=== PATIENT | female | born 1970 | race Two or more races ===

== ENCOUNTER → 2016-10-30 | Outpatient (REF) | payer OTHER ==
[2016-10-30 12:19] LABS: ALBUMIN 4.2 GM/DL (3.2-5.2); ALBUMIN/GLOBULIN RATIO 1.17 (1.00-1.93); ALKALINE PHOSPHATASE 72 U/L (45-117); ALT/SGPT 31 U/L (12-78); ANION GAP 9 MEQ/L (8-16); AST/SGOT 16 U/L (15-37); BILIRUBIN,TOTAL 0.9 MG/DL (0.2-1.0); BLOOD UREA NITROGEN 10 MG/DL (7-18); CALCIUM LEVEL 9.2 MG/DL (8.5-10.1); CARBON DIOXIDE LEVEL 27 MEQ/L (21-32); CHLORIDE LEVEL 102 MEQ/L (98-107); CHOLESTEROL LEVEL 242 MG/DL (<200); CREATININE FOR GFR 0.82 MG/DL (0.55-1.02); FREE T4 1.01 NG/DL (0.76-1.46); GLOMERULAR FILTRATION RATE > 60.0 (>58); GLUCOSE, FASTING 85 MG/DL (70-105); POTASSIUM SERUM 3.9 MEQ/L (3.5-5.1); SODIUM LEVEL 138 MEQ/L (136-145); TOTAL PROTEIN 7.8 GM/DL (6.4-8.2); TRIGLYCERIDES LEVEL 183 MG/DL (<150)
[2016-10-30 13:51] LABS: CONTROL LINE HPYORI INT CTR LINE PRESENT
== END ==
LOC: M SFHCCLAY 07:58
PROVIDERS: ATTEND Family Medicine
DX: E78.2 Mixed hyperlipidemia (principal); R03.0 Elevated blood-pressure reading, without diagnosis of hypertension; K21.9 Gastro-esophageal reflux disease without esophagitis

== ENCOUNTER 2017-01-25 09:27 | Outpatient (CLI) | payer OTHER ==
[~2017-01-25] VITALS: Ht 158.1 cm; Wt 63.5 kg
[~2017-01-25 09:27] MED LIST: PANT40TA2 PO; RANI150T PO
[2017-01-25] MEDS ORDERED: NS 1,000 ML IV ONE (10:00)
[2017-01-25] MEDS ORDERED: CLAR10CA3 PO (10:45)
[2017-01-25] MEDS ORDERED: PROPOFOL 200 MG/20 ML VIAL As Ordered ONE (11:37)
[2017-01-25] MEDS ORDERED: LIDOCAINE 2% INJ 100 MG/5 ML SDV (FOR ANES.) As Ordered ONE (11:38)
--- NOTE | 2017-01-25 11:46 | ROOR ---
Patient Name: Luisa Zaidi Procedure Date: 01/25/2017 11:27 AM Date of : 1970 Age: 46 Room: [facility] Gender: Female Note Status: Finalized Procedure: Upper GI endoscopy Indications: Epigastric abdominal pain, Suspected gastro-esophageal reflux disease Providers: Reagan Devries MD Referring MD: TRACY THAPA DO Requesting Provider: Medicines: Monitored Anesthesia Care Complications: No immediate complications. Procedure: Pre-Anesthesia Assessment: - Prior to the procedure, a History and Physical was performed, and patient medications and allergies were reviewed. The patient is competent. The risks and benefits of the procedure and the sedation options and risks were discussed with the patient. All questions were answered and informed consent was obtained. Patient identification and proposed procedure were verified by the physician, the nurse and the ibm websphere commerce developer in the procedure room. Mental Status Examination: alert and oriented. Airway Examination: normal oropharyngeal airway and neck mobility. Respiratory Examination: clear to auscultation. CV Examination: normal. Prophylactic Antibiotics: The patient does not require prophylactic antibiotics. Prior Anticoagulants: The patient has taken no previous anticoagulant or antiplatelet agents. ASA Grade Assessment: II - A patient with mild systemic disease. After reviewing the risks and benefits, the patient was deemed in satisfactory condition to undergo the procedure. The anesthesia plan was to use monitored anesthesia care (MAC). Immediately prior to administration of medications, the patient was re-assessed for adequacy to receive sedatives. The heart rate, respiratory rate, oxygen saturations, blood pressure, adequacy of pulmonary ventilation, and response to care were monitored throughout the procedure. The physical status of the patient was re-assessed after the procedure. The Endoscope was introduced through the mouth, and advanced to the second part of duodenum. The upper GI endoscopy was accomplished without difficulty. The patient tolerated the procedure well. Findings: A small hiatal hernia was present. The Z-line was regular and was found 36 cm from the incisors. Biopsies were taken with a cold forceps for histology. Verification of patient identification for the specimen was done by the physician and nurse using the patient's name, date and medical record number. Estimated blood loss was minimal. Multiple localized, non-bleeding erosions were found in the gastric antrum. There were no stigmata of recent bleeding. Biopsies were taken with a cold forceps for histology. No gross lesions were noted in the duodenal bulb and in the second portion of the duodenum. Biopsies for histology were taken with a cold forceps for evaluation of celiac disease. Impression: - Small hiatal hernia. - Z-line regular, 36 cm from the incisors. Biopsied. - Non-bleeding erosive gastropathy. Biopsied. - No gross lesions in the duodenal bulb and in the second portion of the duodenum. Biopsied. Recommendation: - Patient has a contact number available for emergencies. The signs and symptoms of potential delayed complications were discussed with the patient. Return to normal activities tomorrow. Written discharge instructions were provided to the patient. - Resume previous diet. - Continue present medications. - Use a proton pump inhibitor PO daily for 8 weeks. - Avoid ibuprofen, naproxen, or other non-steroidal anti-inflammatory drugs. - Await pathology results. - Return to GI clinic as previously scheduled on 02/13/2017 at 9:00 AM. - Return to primary care physician. Reagan Devries MD Reagan Devries MD 01/25/2017 11:45:51 AM This report has been signed electronically. Number of Addenda: 0 Note Initiated On: 01/25/2017 11:27 AM Estimated Blood Loss: Estimated blood loss was minimal.
[2017-01-25 12:05] VITALS: BP 115/77
== END 2017-01-25 12:10 | disposition home or self-care (01) ==
LOC: M OPP 09:27
PROVIDERS: ATTEND Internal Medicine Gastroenterology
DX: R10.13 Epigastric pain (principal); K31.89 Other diseases of stomach and duodenum; K44.9 Diaphragmatic hernia without obstruction or gangrene; R12 Heartburn; K21.9 Gastro-esophageal reflux disease without esophagitis; M19.90 Unspecified osteoarthritis, unspecified site; M54.9 Dorsalgia, unspecified; F41.9 Anxiety disorder, unspecified; R51 Headache; Z87.891 Personal history of nicotine dependence; Z79.899 Other long term (current) drug therapy; Z80.3 Family history of malignant neoplasm of breast

== ENCOUNTER → 2017-02-15 | Outpatient (CLI) | payer OTHER ==
[~2017-02-15] MED LIST changes: +CLAR10CA3 PO
--- NOTE | 2017-02-15 08:46 | REP ---
Complete abdominal ultrasound: There is no cholelithiasis, gallbladder wall thickening or pericholecystic fluid. There is no intrahepatic or extrahepatic biliary duct dilatation, the common duct measures 2.8 mm in diameter. The hepatic parenchyma is homogeneous. The visualized portion of the pancreatic head is unremarkable. The body and tail are obscured by bowel gas. The spleen is homogeneous and measures 11.5 cm craniocaudad length, upper normal size. The right and left kidneys are normal size. There are no renal calculi, masses or cyst. There is no hydronephrosis. There is no abdominal aortic aneurysm. There is no ascites. Impression: Essentially negative complete abdominal ultrasound. Signed by Petey Bill MD 02/15/2017 08:37 A
== END ==
LOC: M RAD 06:07
PROVIDERS: ATTEND Internal Medicine Gastroenterology
DX: R10.9 Unspecified abdominal pain (principal)

== ENCOUNTER → 2017-08-13 | Outpatient (CLI) | payer OTHER | LOC: M CLY 08:02 | DX: J10.1 Influenza due to other identified influenza virus with other respiratory manifestations (principal) ==

== ENCOUNTER → 2018-05-12 | Outpatient (REF) | payer OTHER ==
[~2018-05-12] MED LIST changes: -PANT40TA2 PO; +PANT40TA3 PO
[2018-05-16 00:40] LABS: HPV HYBRID CAPTURE II Negative (Negative)
== END ==
LOC: M SFHCCLAY 11:23
PROVIDERS: ATTEND Nurse Practitioner Family
DX: Z12.31 Encounter for screening mammogram for malignant neoplasm of breast (principal)

== ENCOUNTER → 2018-06-13 | Outpatient (CLI) | payer OTHER ==
--- NOTE | 2018-06-19 15:06 | REPMRS ---
Patient History The patient states she had a clinical breast exam in 2018. No known family history of cancer. Digital Mammo Screening Bilat: June 13, 2018 - Exam #: [id number] Bilateral CC and MLO view(s) were taken. Technologist: Vero Johnson, Technologist Prior study comparison: May 08, 2010, bilateral digital woman screen mammo, performed at [facility]. FINDINGS: The breast tissue is heterogeneously dense. This may lower the sensitivity of mammography. There is a moderate amount of heterogeneously dense fibroglandular tissue which is fairly symmetric. There is no interval development of dominant mass, architectural distortion, or clustered microcalcification typical of malignancy. There has been no change in the appearance of the mammogram from the prior studies. Assessment: BI-RADS/ACR category 1 mammogram. Negative Mammogram. Recommendation Routine screening mammogram of both breasts in 1 year (for women over age 40). This patient's Lifetime Breast Cancer RIsk is estimated at 9.4 %. This mammogram was interpreted with the aid of an FDA-approved computer-aided dectection system. Electronically Signed By: Jeromy Arauz MD 06/19/18 [id number]
== END ==
LOC: M RAD 07:33
PROVIDERS: ATTEND Nurse Practitioner Family
DX: Z12.31 Encounter for screening mammogram for malignant neoplasm of breast (principal)

== ENCOUNTER → 2018-06-15 | Outpatient (CLI) | payer OTHER ==
--- NOTE | 2018-06-18 09:35 | SLEEPCENT ---
DATE OF PROCEDURE: 06/15/2018 ORDERED BY: Sunil Gutierres Nocturnal polysomnography was performed for evaluation of sleep physiology in this patient with a history of snoring, irregular breathing in sleep and nonrestorative sleep. 8 hours and 2 minutes of data were reviewed. They were 372 minutes of sleep identified. Sleep latency was prolonged at 51.5 minutes. Rapid eye movement (REM) latency likewise prolonged at 189 minutes. Sleep architecture was fair with 2 REM cycles noted. Overall sleep efficiency was 77.9%. Electrocardiogram showed sinus rhythm with an average heart rate of 70 beats per minute. Rate ranged 60-80 beats per minute. Electroencephalogram (EEG) showed no focal events, normal waveforms for awake and sleep. There were only 9 respiratory events of 10 seconds in duration or greater for an apnea-hypopnea index within normal limits of 1.5. Snoring was however noted over the course of the entire study and arousals from respiratory events occurred 4 times per hour. There were occasional mild oxygen desaturations below 80%. Some limb activity was noted, but limb movement arousal index was only 2.4. IMPRESSION: Normal nocturnal polysomnography with snoring.
== END ==
LOC: M SLEEP 20:00
PROVIDERS: ATTEND Physician Assistant
DX: R40.0 Somnolence (principal)

== ENCOUNTER → 2019-03-02 | Outpatient (REF) | payer OTHER ==
[2019-03-02 10:57] LABS: CHOLESTEROL RISK RATIO 3.779 (<5)
== END ==
LOC: M SFHCCLAY 07:27
PROVIDERS: ATTEND Family Medicine
DX: Z00.01 Encounter for general adult medical examination with abnormal findings (principal); Z13.220 Encounter for screening for lipoid disorders; Z82.49 Family history of ischemic heart disease and other diseases of the circulatory system

== ENCOUNTER → 2019-03-07 | Outpatient (CLI) | payer OTHER ==
--- NOTE | 2019-03-07 09:58 | REP ---
REASON FOR EXAM: Chronic maxillary sinusitis. COMPARISON: 03/29/2011 The right maxillary sinus mucosal thickening seen on the prior examination has significantly improved. Persistent mucous retention cysts are suspected. The remaining paranasal sinuses are again seen to be clear and unchanged. The ostiomeatal complex is again seen to be patent bilaterally. The hiatus semilunaris is within normal limits bilaterally. The uncinate process is intact and unchanged bilaterally. There is a right middle turbinate eder bullosa unchanged. The minimal nasal septal deviation seen on the prior exam is unchanged. It is again seen to the left with a tiny leftward nasal septal spine. The cribriform plate and mitchel camila are again seen to be intact. There is no orbital wall abnormality. IMPRESSION: Improved findings on the right as described above. No acute disease or otherwise significant change from the prior exam. Electronically Signed by Mateusz Price DO 03/07/2019 10:04 A
== END ==
LOC: M RAD 09:21
PROVIDERS: ATTEND Family Medicine
DX: J32.0 Chronic maxillary sinusitis (principal)

== ENCOUNTER → 2019-03-24 | Outpatient (CLI) | payer OTHER ==
[2019-03-24 17:38] LABS: FREE T4 0.84 NG/DL (0.76-1.46)
[2019-03-24 17:39] LABS: HCG, SERUM QUALITATIVE NEGATIVE (NEGATIVE)
[2019-03-24 17:42] LABS: FOLLICLE STIMULATING HORMONE 8.6 mIU/mL; LUTEINIZING HORMONE 9.6 mIU/mL
== END ==
LOC: M SMT 14:42
PROVIDERS: ATTEND Advanced Practice Midwife
DX: N92.4 Excessive bleeding in the premenopausal period (principal)

== ENCOUNTER → 2019-03-26 | Outpatient (CLI) | payer OTHER ==
--- NOTE | 2019-03-27 08:44 | REP ---
Clinical: Abnormal uterine bleeding . Technique: Transabdominal pelvic ultrasound followed by transvaginal examination for better evaluation of the endometrium and adnexa with color Doppler evaluation of the ovaries. Findings: Bladder is unremarkable and measures 10.2 x 9.0 x 6.9 cm . Heterogeneous anteverted uterus measures 8.3 x 4.9 x 6.3 cm and includes 2.4 cm left/fundal complex submucosal fibroid and 1.6 cm left mid submucosal fibroid. The endometrial complex measures 6.7 mm thickness with 8 mm hypoechoic focus possibly representing third submucosal fibroid or small endometrial polyp. Bilateral ovaries are normal in appearance and vascularity without evidence for torsion. Right ovary measures 3.6 x 2.5 x 3.5 cm and includes 2.3 cm physiologic cyst / follicle ; R I = 0.47 . Left ovary measures 1.9 x 1.1 x 1.6 cm ; R I = 0.40 . No pelvic fluid or adnexal mass lesion . Impression: 1. Submucosal fibroids as noted above along with possible endometrial polyp. 2. Right ovarian cyst / follicle Electronically Signed by Sunil Rushing MD 03/27/2019 08:36 A
== END ==
LOC: M RAD 17:23
PROVIDERS: ATTEND Advanced Practice Midwife
DX: N92.4 Excessive bleeding in the premenopausal period (principal); D25.0 Submucous leiomyoma of uterus; N83.201 Unspecified ovarian cyst, right side

== ENCOUNTER → 2019-05-12 | Outpatient (REF) | payer OTHER | LOC: M SFHCWAGY 10:58 | PROVIDERS: ATTEND Obstetrics & Gynecology | DX: N93.9 Abnormal uterine and vaginal bleeding, unspecified (principal) ==

== ENCOUNTER → 2019-06-15 | Outpatient (CLI) | payer OTHER ==
[2019-06-15 12:51] LABS: FOLATE 11.1 NG/ML (>5.4); RHEUMATOID FACTOR QUANT < 10.0 IU/ML (<15.0); TOTAL 25(OH) VITAMIN D 27.6 NG/ML (30.0-100.0); TOTAL PROTEIN 7.5 GM/DL (6.4-8.2); VITAMIN B12 LEVEL 488 PG/ML (247-911)
[2019-06-15 13:24] LABS: HEMOGLOBIN A1c 5.1 %
[2019-06-16 13:16] LABS: ALBUMIN 4.71 GM/DL (3.29-5.55); ALBUMIN % 62.8 % (55.8-66.1); ALPHA-1-GLOBULIN % 3.2 % (2.9-4.9); ALPHA-1-GLOBULINS 0.24 GM/DL (0.17-0.41); ALPHA-2-GLOBULINS 0.68 GM/DL (0.42-0.99); ALPHA-2-GLOBULINS % 9.1 % (7.1-11.8); BETA-1-GLOBULINS 0.46 GM/DL (0.28-0.60); BETA-1-GLOBULINS % 6.1 % (4.7-7.2); BETA-2-GLOBULINS 0.31 GM/DL (0.19-0.55); BETA-2-GLOBULINS % 4.1 % (3.2-6.5); GAMMA GLOBULIN % 14.7 % (11.1-18.8)
== END ==
LOC: M CLY 09:15
PROVIDERS: ATTEND Psychiatry & Neurology Neurology
DX: R51 Headache (principal)

== ENCOUNTER 2019-07-03 07:56 | Day surgery (SDC) | payer OTHER ==
[~2019-07-03] VITALS: Ht 162.6 cm; Wt 65.8 kg
[~2019-07-03 07:56] MED LIST changes: +AZEL1SPR3; +GABA-1171 PO; +LIDOCAINE 1% MDV 20ML VIAL SQ PRN; +LR 1,000 ML IV ONE; +[UNRECOGNIZED DRUG - CODE] OU
[2019-07-03 08:28] LABS: HEMATOCRIT 43.6 % (36.0-47.0); HEMOGLOBIN 13.7 g/dl (12.0-15.5); MEAN CORPUSCULAR HEMOGLOBIN 29.6 pg (27.0-33.0); MEAN CORPUSCULAR HGB CONC 31.4 g/dl (32.0-36.5); MEAN CORPUSCULAR VOLUME 94.2 fl (80.0-96.0); PLATELET COUNT, AUTOMATED 239 10^3/uL (150-450); RED BLOOD COUNT 4.63 10^6/uL (4.00-5.40); WHITE BLOOD COUNT 3.2 10^3/uL (4.0-10.0)
[2019-07-03] MEDS ORDERED: KETOROLAC 60 MG/2 ML VIAL (J1885) As Ordered ONE (11:24)
[2019-07-03] MEDS ORDERED: dexameTHASONE 4 MG/ML 1ML VIAL (J1100) As Ordered ONE (11:24)
[2019-07-03] MEDS ORDERED: ONDANSETRON 4MG/2ML VIAL (J2405) As Ordered ONE (11:24)
[2019-07-03] MEDS ORDERED: propofoL 200 MG/20 ML VIAL As Ordered ONE (11:24)
[2019-07-03] MEDS ORDERED: fentaNYL 100 MCG/2 ML INJECTION (J3010) As Ordered ONE (11:24)
[2019-07-03] MEDS ORDERED: MIDAZOLAM INJ 2 MG/2 ML VIAL (J2250) As Ordered ONE (11:24)
[2019-07-03] MEDS ORDERED: LIDOCAINE 2% INJ 100 MG/5 ML SDV (FOR ANES.) As Ordered ONE (11:24)
[2019-07-03] MEDS ORDERED: METOCLOPRAMIDE INJ 10MG/2ML VIAL (J2765) IV PRN (12:45)
[2019-07-03] MEDS ORDERED: PERCOCET 5MG/325MG TAB PO PRN (12:45)
[2019-07-03] MEDS ORDERED: ONDANSETRON 4MG/2ML VIAL (J2405) IV PRN (12:45)
[2019-07-03] MEDS ORDERED: fentaNYL 100 MCG/2 ML INJECTION (J3010) IV PRN (12:45)
[2019-07-03] MEDS ORDERED: LR 1,000 ML IV SCH ×2 (12:45→13:46)
[2019-07-03] MEDS ORDERED: PERCOCET PO (13:04)
[2019-07-03 14:05] VITALS: BP 125/83
== END 2019-07-03 14:15 | disposition home or self-care (01) ==
LOC: M SDC 07:56
PROVIDERS: ATTEND Obstetrics & Gynecology
DX: N93.8 Other specified abnormal uterine and vaginal bleeding (principal); D25.9 Leiomyoma of uterus, unspecified; I11.9 Hypertensive heart disease without heart failure; R42 Dizziness and giddiness; K21.9 Gastro-esophageal reflux disease without esophagitis; M50.20 Other cervical disc displacement, unspecified cervical region; F41.9 Anxiety disorder, unspecified; F32.9 Major depressive disorder, single episode, unspecified; Z79.899 Other long term (current) drug therapy; Z87.891 Personal history of nicotine dependence
CPT/HCPCS: 36415; 58563; 85027; 86850; 86900; 86901; 88305; J1100; J1885; J2250; J2405; J3010

== ENCOUNTER → 2020-01-15 | Outpatient (REF) | payer OTHER ==
[~2020-01-15] MED LIST changes: -LIDOCAINE 1% MDV 20ML VIAL SQ PRN; -LR 1,000 ML IV ONE; +PANT40TA29 PO; -PANT40TA3 PO; +PERCOCET PO
== END ==
LOC: M LABDRAWC 14:55
PROVIDERS: ATTEND Family Medicine
DX: R14.0 Abdominal distension (gaseous) (principal); R53.83 Other fatigue

== ENCOUNTER → 2020-01-25 | Outpatient (REF) | payer OTHER ==
[2020-01-26 13:53] LABS: BASO % 0.5 % (0.0-1.0); HEMATOCRIT 41.3 % (36.0-47.0); HEMOGLOBIN 13.4 g/dl (12.0-15.5); LYMPH # 0.8 10^3/uL (1.5-5.0); LYMPH % 20.2 % (24.0-44.0); MEAN CORPUSCULAR HEMOGLOBIN 30.9 pg (27.0-33.0); MEAN CORPUSCULAR HGB CONC 32.4 g/dl (32.0-36.5); MEAN CORPUSCULAR VOLUME 95.4 fl (80.0-96.0); MONO # 0.5 10^3/uL (0.0-0.8); MONO % 12.8 % (0.0-5.0); NEUTROPHILS # 2.5 10^3/uL (1.5-8.5); NEUTROPHILS % 65.2 % (36.0-66.0); PLATELET COUNT, AUTOMATED 272 10^3/uL (150-450); RED BLOOD COUNT 4.33 10^6/uL (4.00-5.40); WHITE BLOOD COUNT 3.8 10^3/uL (4.0-10.0)
[2020-01-26 13:56] LABS: FREE T4 0.93 NG/DL (0.76-1.46); THYROID STIMULATING HORMONE 2.22 uIU/ML (0.358-3.740)
[2020-01-27 18:07] LABS: Lyme Disease IgG/IgM Antibodie <0.91 ISR (0.00-0.90); Lyme Disease IgM Ab Quantitati <0.80 index (0.00-0.79)
== END ==
LOC: M LABDRAWC 14:55
PROVIDERS: ATTEND Family Medicine
DX: R14.0 Abdominal distension (gaseous) (principal); R53.83 Other fatigue; K59.00 Constipation, unspecified; M25.50 Pain in unspecified joint

== ENCOUNTER → 2020-05-03 | Outpatient (CLI) | payer SELFPAY | LOC: M LABSMTC 09:12 | PROVIDERS: ATTEND Pediatrics | DX: Z11.59 Encounter for screening for other viral diseases (principal) ==

== ENCOUNTER → 2021-03-10 | Outpatient (CLI) | payer OTHER | LOC: M LABSMTC 11:29 | PROVIDERS: ATTEND Anesthesiology | DX: Z01.812 Encounter for preprocedural laboratory examination (principal); Z20.822 Contact with and (suspected) exposure to COVID-19 ==

== ENCOUNTER 2021-03-14 09:21 | Day surgery (SDC) | payer OTHER ==
[~2021-03-14] VITALS: Ht 157.5 cm; Wt 67.1 kg
[~2021-03-14 09:21] MED LIST changes: +NS 1,000 ML IV ONE
--- OUTSIDE RECORDS SUMMARY | 2021-03-14 09:24 | CCD | Continuity of Care Document ---
Author Author Luisa FARIAS A [facility] Organization Unknown Address [address] [place] [address], [address] [place] [address] Phone [phone] Care Team Providers Care Airborne [employer]ions Systems Name Role Phone Bianka Sellers D.O.M [phone] Problems Active Problems Provider Date Chronic rhinitis Donovan Al MD Onset: 05/03/2014 Sensorineural hearing loss, bilateral Donovan Al MD On set: 05/03/2014 Subjective tinnitus Donovan Al MD Onset: 05/03/2014 Headache Donovan Al MD Onset: 05/03/2014 Chronic maxillary sinusitis Donovan Al MD Onset: 05/03 Peptic reflux disease Reagan Devries M.D. Onset: 01/02 Heartburn Reagan Devries M.D. Onset: 017 Epigastric pain Reagan Devries M.D. Onset: 017 Gastroesophageal reflux disease Reagan Devries M.D. On set: 02/13/2017 Disturbance of consciousness NASIMA Salas Onset: 05/27 Difficulty breathing NASIMA Salas Onset: 06/09/2018 Sleep apnea NASIMA Salas Onset: 06/09/2018 Social History Type Date Description Comments Sex Unknown ETOH Use 1 A Day Tobacco Use Start: 05/27/87 End: 05/27/97 Patient is a forme r smoker hx 1 pack per day for 10 years Recreational Drug Use Denies Drug Use Smoking Status Reviewed: 06/09/18 Patient is a former smoker hx 1 pack per day for 10 years Exercise Type/Frequency Exercises regularly Allergies, Adverse Reactions, Alerts Description No Known Drug Allergies Medications Active Medications SIG Qnty Indications Ordering Provide r Date Suprep Bowel Prep Kit 17.5-3.13-1.6GM/177ML Solution take per doctor's bowel prep instructions. 354ml Z12.1 1 Noah Villagran MD 01/31/[address] take 4 tabs by mouth prior to procedure per instructions. 4tabs Z12.11 Noah Villagrna MD 01/31/2021 Ibuprofen 600mg Tablets as needed 90tabs Unknown Gabapentin 100mg Capsules Tegan ly Unknown Vitamin D 2000Unit Tablets Da everardo Unknown Zyrtec-D Allergy & Congestion 5-120mg Tablets ER 12HR prn Unknown Immunizations Description No Information Available Vital Signs Date Vital Result Comment 01/31/2021 2:58pm BP Systolic 128 mmHg BP Diastolic 90 mmHg Height 62.75 inches 5'2.75" Weight 149.00 lb BMI (Body Mass Index) 26.6 kg/m2 [place] Body Weight 110 lb Weight 67.586 kg BSA (Body Surface Area) 1.70 m2 04/14/2019 10:14am Height 62.75 inches 5'2.75" Weight 147.00 lb BMI (Body Mass Index) 26.2 kg/m2 [place] Body Weight 110 lb Weight 66.679 kg BSA (Body Surface Area) 1.69 m2 Results Description No Information Available Procedures Description No Information Available Medical Devices Description No Information Available Encounters Description No Information Available Assessments Date Code Description Provider 01/31/2021 Z12.11 Encounter for screening for soumya gnant neoplasm of colon URI [place] Plan of Treatment 01/31/2021 - URI [place]nis* Z12.11 Encounter for screening for malignant neoplasm of colon * * New Medication:* Suprep Bowel Prep Kit 17.5-3.13-1.6 GM/177ML * Dulcolax 5 mg * New Orders:* Colonoscopy, Ordered: 01/31/21 * Comments:* Will arrange for colonoscopy. Reviewed risks and benefits of the procedure, as well as other options, with the patient. Bowel prep procedure was discussed with patient, as well as risks and side effects associated with the bowel prep. Patient verbalized understanding of all of the above and is in agreement to proceed. Patient will seek medical attention for any acute changes. Will monitor. * Follow up:* As scheduled, sooner if needed. Functional Status Functional Condition Comment Date Status Independent with all ADL's Activ e Independent with all IADL's Acti ve Mental Status Mental Condition Comment Date Status None Active Can understand information Activ e Referrals Description No Information Available
--- OUTSIDE RECORDS SUMMARY | 2021-03-14 09:24 | CCD | Continuity of Care Document ---
Author Author Luisa MUNROE P.A.-C. Organization Unknown Address [address] [place] [address] Phone [phone] Care Team Providers Care System Integration Engineer Name Role Phone Bianka Sellers D.O. AUTM [phone] Problems Active Problems Provider Date Paresthesia Nereida Rao M.D. Onset: 06/11/2019 Headache Nereida Rao M.D. Onset: 06/11/2019 Finding related to focusing Nereida Rao M.D. Onset: 06/11 Social History Type Date Description Comments Sex Unknown Tobacco Use Start: Unknown End: Unknown Patient is a former smoker Allergies, Adverse Reactions, Alerts Description No Known Drug Allergies Medications Active Medications SIG Qnty Indications Ordering Provide r Date Gabapentin 100mg Capsules 1 po qhs 90caps G43.809 Nereida Rao M.D. 12/30/2020 History Medications No Active Medications Unknown 10/2020 - 12/30/2020 Immunizations Description No Information Available Vital Signs Date Vital Result Comment 12/30/2020 7:29am BP Systolic 140 mmHg BP Diastolic 90 mmHg Heart Rate 80 /min Respiratory Rate 16 /min 06/11/2019 9:01am Height 62 inches 5'2" Weight 145.00 lb BMI (Body Mass Index) 26.5 kg/m2 [place] Body Weight 110 lb Results Description No Information Available Procedures Date Code Description Status 12/30/2020 12406 Office/Outpatient Established Mo d MDM 30-39 Min Completed 09/28/2020 12090 Office/Outpatient Established Mo d MDM 30-39 Min Completed Medical Devices Description No Information Available Encounters Type Date Location Provider Dx Diagnosis Office Visit 12/30/2020 8:15a Main office - [place] Chanelle good P.A.-C. G43.809 Other migraine, not intractable, without status migrainosus M54.2 Cervicalgia M47.892 Other spondylosis, cervical region M62.838 Other muscle spasm G56.03 Carpal tunnel syndrome, bila teral upper limbs M54.5 Low back pain G25.81 Restless legs syndrome E55.9 Vitamin D deficiency, unspec ified R20.2 Paresthesia of skin Office Visit 09/28/2020 11:45a Main office - [place] Chanelle good, P.A.-C. G43.809 Other migraine, not intractable, without status migrainosus M54.2 Cervicalgia M47.892 Other spondylosis, cervical region M54.5 Low back pain M62.838 Other muscle spasm G56.03 Carpal tunnel syndrome, bila teral upper limbs E55.9 Vitamin D deficiency, unspec ified G25.81 Restless legs syndrome Assessments Date Code Description Provider 12/30/2020 G43.809 Other migraine, not intractable, without status migrainosus Chanelle Munroe P.A.-C. 12/30/2020 M54.2 Cervicalgia Chanelle Munroe P.A.-C. 12/30/2020 M47.892 Other spondylosis, cervical aysha on Chanelle Munroe P.A.-C. 12/30/2020 M62.838 Other muscle spasm Chanelle parks P.A.-C. 12/30/2020 G56.03 Carpal tunnel syndrome, bilatera l upper limbs Chanelle Munroe P.A.-C. 12/30/2020 M54.5 Low back pain Chanelle Munroe, P.A.-C. 12/30/2020 G25.81 Restless legs syndrome Chanelle gibbs P.A.-C. 12/30/2020 E55.9 Vitamin D deficiency, unspecifie d Chanelle Munroe P.A.-C. 12/30/2020 R20.2 Paresthesia of skin Chanelle good P.A.-C. 09/28/2020 G43.809 Other migraine, not intractable, without status migrainosus Chanelle Munroe P.A.-C. 09/28/2020 M54.2 Cervicalgia Jose BolesAMyron-CMyron 09/28/2020 M47.892 Other spondylosis, cervical aysha on Jose BolesAKusumCMyron 09/28/2020 M54.5 Low back pain Jose BolesAKusumCMyron 09/28/2020 M62.838 Other muscle spasm Chanelle praks, JoseAMyron-CMyron 09/28/2020 G56.03 Carpal tunnel syndrome, bilatera l upper limbs Jose BolesAMyron-CMyron 09/28/2020 E55.9 Vitamin D deficiency, unspecifie d Jose BolesAJimena 09/28/2020 G25.81 Restless legs syndrome Chanelle gibbs P.A.-C. Plan of Treatment Future Appointment(s):* 04/03/2021 8:30 am - Chanelle Munroe P.A.-C. at Main office - [place] 12/30/2020 - Chanelle Munroe P.A.-C.* G43.809 Other migraine, not intractable, without status migrainosus* New Medication:* Gabapentin 100 mg - 1 po qhs * Comments:* Controlled. * M54.2 Cervicalgia* Comments:* Add gabapentin. * M47.892 Other spondylosis, cervical region * M62.838 Other muscle spasm* Comments:* Improved. * G56.03 Carpal tunnel syndrome, bilateral upper limbs* Comments:* Stable. * M54.5 Low back pain* Comments:* Controlled with exercises. * G25.81 Restless legs syndrome* Comments:* Continue magnesium. * E55.9 Vitamin D deficiency, unspecified* Comments:* She continues a supplement. * R20.2 Paresthesia of skin* Comments:* Add gabapentin. * Follow up:* 3 months Functional Status Description No Information Available Mental Status Description No Information Available Referrals Description No Information Available
--- OUTSIDE RECORDS SUMMARY | 2021-03-14 09:24 | CCD | Continuity of Care Document ---
Author Author Luisa FARIAS A [facility] Organization Unknown Address [address] [place] [address], [address] [place] [address] Phone [phone] Care Team Providers Care Circus Train Supervisor Name Role Phone Bianka Sellers D.O.M [phone] Problems Active Problems Provider Date Chronic rhinitis [...] to procedure per instructions. 4tabs Z12.11 Noah Villagran MD 01/31/2021 Ibuprofen 600mg Tablets as needed [...] lb BMI (Body Mass Index) 26.6 kg/m2 [place] Body Weight 110 lb Weight 67.586 kg BSA (Body Surface Area) 1.70 m2 04/14/2019 10:14am Height 62.75 inches 5'2.75" Weight 147.00 lb BMI (Body Mass Index) 26.2 kg/m2 [place] Body Weight 110 lb Weight 66.679 kg [...]
--- OUTSIDE RECORDS SUMMARY | 2021-03-14 09:24 | CCD | Continuity of Care Document ---
Author Author Luisa MUNROE P.A.-C. Organization Unknown Address [address] [place] [address] Phone [phone] Care Team Providers Care Instrument Maker Name Role Phone Bianka Sellers D.O. AUTM [phone] Problems Active Problems Provider Date Paresthesia Nereida [...] Available Vital Signs Date Vital Result Comment 06/11/2019 9:01am Height 62 inches 5'2" Weight 145.00 lb BMI (Body Mass Index) 26.5 kg/m2 [place] Body Weight 110 lb Results Description No Information Available Procedures Date Code Description Status 09/28/2020 32270 Office/Outpatient Established Mo d MDM 30-39 Min Completed Medical Devices Description No Information Available Encounters Type Date Location Provider Dx Diagnosis Office Visit 09/28/2020 11:45a Main office - [place] Chanelle good P.A.-C. G43.809 Other migraine, not intractable, without status migrainosus M54.2 Cervicalgia M47.892 Other spondylosis, cervical region M54.5 Low back pain M62.838 Other muscle spasm G56.03 Carpal tunnel syndrome, bila teral upper limbs E55.9 Vitamin D deficiency, unspec ified G25.81 Restless legs syndrome Assessments Date Code Description Provider 12/30/2020 G43.809 Other migraine, not intractable, without status migrainosus Chanelle Munroe, P.A.-C. 12/30/2020 M54.2 Cervicalgia Chanelle Munroe, P.A.-C. 12/30/2020 M47.892 Other spondylosis, cervical aysha on Chanelle Vanessa Munroe, P.A.-C. 12/30/2020 M62.838 Other muscle spasm Chanelle parks, P.A.-C. 12/30/2020 G56.03 Carpal tunnel syndrome, bilatera l upper limbs Chanelle Munroe, P.A.-C. 12/30/2020 M54.5 Low back pain Chanelle Vaenssa Munroe, P.A.-C. 12/30/2020 G25.81 Restless legs syndrome Chanelle gibbs, P.A.-C. 12/30/2020 E55.9 Vitamin D deficiency, unspecifie d Chanelle Munroe, P.A.-C. 09/28/2020 G43.809 Other migraine, not intractable, without status migrainosus Chanelle Munroe, P.A.-C. 09/28/2020 M54.2 Cervicalgia Chanelle Munroe, P.A.-C. 09/28/2020 M47.892 Other spondylosis, cervical aysha on Chanelle Vanessa Munroe, P.A.-C. 09/28/2020 M54.5 Low back pain Chanelle Vanessa Munroe, P.A.-C. 09/28/2020 M62.838 Other muscle spasm Chanelle Vanessa parks, P.A.-C. 09/28/2020 G56.03 Carpal tunnel syndrome, bilatera l upper limbs Chanelle Munroe, P.A.-C. 09/28/2020 E55.9 Vitamin D deficiency, unspecifie d Chanelle Munroe P.A.-C. 09/28/2020 G25.81 Restless legs syndrome Chanelle gibbs P.A.-C. Plan of Treatment 12/30/2020 - Chanelle Munroe P.A.-C.* G43.809 Other migraine, not intractable, without status migrainosus* New Medication:* Gabapentin 100 mg - 1 po qhs * M54.2 Cervicalgia * M47.892 Other spondylosis, cervical region * M62.838 Other muscle spasm * G56.03 Carpal tunnel syndrome, bilateral upper limbs * M54.5 Low back pain * G25.81 Restless legs syndrome * E55.9 Vitamin D deficiency, unspecified Functional Status Description No Information Available Mental Status Description No Information Available Referrals Description No Information Available
--- OUTSIDE RECORDS SUMMARY | 2021-03-14 09:25 | CCD ---
Author Author [facility] Organization [facility] Address Unknown Phone Unavailable Care Team Providers Care Supervisor Engine Assembly Name Role Phone PUJA JULIAN MD Unavailable Unavailable PUJA JULIAN MD Unavailable Unavailable PUJA JULIAN MD Unavailable Unavailable PUJA JULIAN MD Unavailable Unavailable PUJA JULIAN MD Unavailable Unavailable PUJA JULIAN MD Unavailable Unavailable PUJA JULIAN MD Unavailable Unavailable PUJA JULIAN MD Unavailable Unavailable PUJA JULIAN MD Unavailable Unavailable PUJA JULIAN MD Unavailable Unavailable PUJA JULIAN MD Unavailable Unavailable PUJA JULIAN MD Unavailable Unavailable PUJA JULIAN MD Unavailable Unavailable PUJA JULIAN MD Unavailable Unavailable PUJA JULIAN MD Unavailable Unavailable PUJA JULIAN MD Unavailable Unavailable PUJA JULIAN MD Unavailable Unavailable PUJA JULIAN MD Unavailable Unavailable PUJA JULIAN MD Unavailable Unavailable PUJA JULIAN MD Unavailable Unavailable PUJA JULIAN MD Unavailable Unavailable PUJA JULIAN MD Unavailable Unavailable PUJA JULIAN MD Unavailable Unavailable PUJA JULIAN MD Unavailable Unavailable PUJA JULIAN MD Unavailable Unavailable PUJA JULIAN MD Unavailable Unavailable PUJA JULIAN MD Unavailable Unavailable PUJA JULIAN MD Unavailable Unavailable PUJA JULIAN MD Unavailable Unavailable PUJA JULIAN MD Unavailable Unavailable PUJA JULIAN MD Unavailable Unavailable PUJA JULIAN MD Unavailable Unavailable PUJA JULIAN MD Unavailable Unavailable PUJA JULIAN MD Unavailable Unavailable PUJA JULIAN MD Unavailable Unavailable PUJA JULIAN MD Unavailable Unavailable PUJA JULIAN MD Unavailable Unavailable PUJA JULIAN MD Unavailable Unavailable PUJA JULIAN MD Unavailable Unavailable ELIEL, PUJA MD Unavailable Unavailable PUJA JULIAN MD Unavailable Unavailable PUJA JULIAN MD Unavailable Unavailable PUJA JULIAN MD Unavailable Unavailable Trickey, J Chanelle PA Unavailable Unavailable Trickey, J Chanelle PA Unavailable Unavailable Trickey, J Chanelle PA Unavailable Unavailable Trickey, J Chanelle PA Unavailable Unavailable Trickey, J Chanelle PA Unavailable Unavailable Trickey, J Chanelle PA Unavailable Unavailable Trickey, J Chanelle PA Unavailable Unavailable Trickey, J Chanelle PA Unavailable Unavailable Trickey, J Chanelle PA Unavailable Unavailable Trickey, J Chanelle PA Unavailable Unavailable Trickey, J Chanelle PA Unavailable Unavailable Trickey, J Chanelle PA Unavailable Unavailable Trickey, J Chanelle PA Unavailable Unavailable Trickey, J Chanelle PA Unavailable Unavailable Trickey, J Chanelle PA Unavailable Unavailable Trickey, J Chanelle PA Unavailable Unavailable Trickey, J Chanelle PA Unavailable Unavailable Trickey, J Chanelle PA Unavailable Unavailable Trickey, J Chanelle PA Unavailable Unavailable Trickey, J Chanelle PA Unavailable Unavailable Trickey, J Chanelle PA Unavailable Unavailable Trickey, J Chanelle PA Unavailable Unavailable Trickey, J Chanelle PA Unavailable Unavailable Trickey, J Chanelle PA Unavailable Unavailable Trickey, J Chanelle PA Unavailable Unavailable Trickey, J Chanelle PA Unavailable Unavailable Trickey, J Chanelle PA Unavailable Unavailable Trickey, J Chanelle PA Unavailable Unavailable Trickey, J Chanelle PA Unavailable Unavailable Trickey, J Chanelle PA Unavailable Unavailable Trickey, J Chanelle PA Unavailable Unavailable Trickey, J Chanelle PA Unavailable Unavailable Trickey, J Chanelle PA Unavailable Unavailable Trickey, J Chanelle PA Unavailable Unavailable Trickey, J Chanelle PA Unavailable Unavailable Trickey, J Chanelle PA Unavailable Unavailable Trickey, J Chanelle PA Unavailable Unavailable Trickey, J Chanelle PA Unavailable Unavailable Trickey, J Chanelle PA Unavailable Unavailable Trickey, J Chanelle PA Unavailable Unavailable Trickey, J Chanelle PA Unavailable Unavailable Trickey, J Chanelle PA Unavailable Unavailable Trickey, J Chanelle PA Unavailable Unavailable Trickey, J Chanelle PA Unavailable Unavailable Trickey, J Chanelle PA Unavailable Unavailable Trickey, J Chanelle PA Unavailable Unavailable Trickey, J Chanelle PA Unavailable Unavailable Trickey, J Chanelle PA Unavailable Unavailable Trickey, J Chanelle PA Unavailable Unavailable Pat Tobar, Celena Zamora MD, FACS Unavailable Unavailable Pat Tobar, Celena Zamora MD, FACS Unavailable Unavailable Celena Calvillo MD, FACS Unavailable Unavailable Stewart Tobar, Celena Zamora MD, FACS Unavailable Unavailable Stewart Tobar, Celnea Zamora MD, FACS Unavailable Unavailable Stewart Tobar, Celena Zamora MD, FACS Unavailable Unavailable Stewart Tobar, Celena Zamora MD, FACS Unavailable Unavailable Stewart Tobar, Celena Zamora MD, FACS Unavailable Unavailable Stewart Tobar, Celena Zamora MD, FACS Unavailable Unavailable Stewart Tobar, Celena Zamora MD, FACS Unavailable Unavailable Stewart Tobar, Celena Zamora MD, FACS Unavailable Unavailable Stewart Tobar, Celena Zamora MD, FACS Unavailable Unavailable Stewart Tobar, Celena Zamora MD, FACS Unavailable Unavailable Stewart Tobar, Celena Zamora MD, FACS Unavailable Unavailable Stewart Tobar, Celena Zamora MD, FACS Unavailable Unavailable Stewart Tobar, Celena Zamora MD, FACS Unavailable Unavailable Stewart Tobar, Celena Zamora MD, FACS Unavailable Unavailable Stewart Tobar, Celena Zamora MD, FACS Unavailable Unavailable Stewart Tobar, Celena Zamora MD, FACS Unavailable Unavailable Stewart Tobar, Celena Zamora MD, FACS Unavailable Unavailable Stewart Tobar, Celena Zamora MD, FACS Unavailable Unavailable Stewart Tobar, Celena Zamora MD, FACS Unavailable Unavailable Stewart Tobar, Celena Zamora MD, FACS Unavailable Unavailable Stewart Tobar, Celena Zamora MD, FACS Unavailable Unavailable Stewart Tobar, Celena Zamora MD, FACS Unavailable Unavailable Stewart Tobar, Celena Zamora MD, FACS Unavailable Unavailable Stewart Tobar, Celena Zamora MD, FACS Unavailable Unavailable Stewart Tobar, Celena Zamora MD, FACS Unavailable Unavailable Stewart Tobar, Celena Zamora MD, FACS Unavailable Unavailable Stewart Tobar, Celena Zamora MD, FACS Unavailable Unavailable Stewart Tobar, Celena Zamora MD, FACS Unavailable Unavailable Stewart Tobar, Celena Zamora MD, FACS Unavailable Unavailable Stewart Tobar, Celena Zamora MD, FACS Unavailable Unavailable Stewart Tobar, Celena Zamora MD, FACS Unavailable Unavailable Stewart Tobar, Celena Zamora MD, FACS Unavailable Unavailable Stewart Tobar, Celena Zamora MD, FACS Unavailable Unavailable Stewart Tobar, Celena Zamora MD, FACS Unavailable Unavailable Stewart Tobar, Celena Zamora MD, FACS Unavailable Unavailable Stewart Tobar, Celena Zamora MD, FACS Unavailable Unavailable Re-disclosure Warning The records that you are about to access may contain information from federally-assisted alcohol or drug abuse programs. If such information is present, then the following federally mandated warning applies: This information has been disclosed to you from records protected by federal confidentiality rules (42 CFR part 2). The federal rules prohibit you from making any further disclosure of this information unless further disclosure is expressly permitted by the written consent of the person to whom it pertains or as otherwise permitted by 42 CFR part 2. A general authorization for the release of medical or other information is NOT sufficient for this purpose. The Federal rules restrict any use of the information to criminally investigate or prosecute any alcohol or drug abuse patient.The records that you are about to access may contain highly sensitive health information, the redisclosure of which is protected by Article 27-F of the [facility] Public Health law. If you continue you may have access to information: Regarding HIV / AIDS; Provided by facilities licensed or operated by the [facility] Office of Mental Health; or Provided by the [facility] Office for People With Developmental Disabilities. If such information is present, then the following [facility] mandated warning applies: This information has been disclosed to you from confidential records which are protected by state law. State law prohibits you from making any further disclosure of this information without the specific written consent of the person to whom it pertains, or as otherwise permitted by law. Any unauthorized further disclosure in violation of state law may result in a fine or nursing home sentence or both. A general authorization for the release of medical or other information is NOT sufficient authorization for further disc losure. Allergies and Adverse Reactions Type Description Substance Reaction Status Data Source(s ) Allergy to substance No Known Allergies No known allergies (situation ) DELL RAPIDS (Karlos Tobar MD [facility]) Family History Family Member Name Family Member Gender Family Member Status Date o f Status Description Data Source(s) Unknown Unknown Problem MEDENT ([facility], [facility]) father Unknown Unknown Problem MEDENT ([facility], ) Encounters Encounter Providers Location Date Indications Data Source(s ) Outpatient Attender: Chanelle DEL REAL [facility] 12/30/2020 08:15:00 AM EDT MEDENT ([facility], ) Outpatient Attender: Chanelle DEL REAL [facility] 09/28/2020 11:45:00 AM EDT MEDENT ([facility], ) Outpatient<td ID="encounterTypeDescripti onID0">1 Year Follow-Up</td><td>Karlos Godfrey MD, [facility]</td><td>Karlos Godfrey MD [facility]</td><td>07/28/2020</td><td>7:25AM</td><td>8:02AM</td><td><content ID="encounterDiagnosisID0-0">Dry Eye Syndrome Both Eyes</content>, <content ID="encounterDiagnosisID0-1">Corneal Opacity</content>, <content ID="encounterDiagnosisID0-2">Vitreous Disorders Degeneration</content></td> Attender: Karlos Tobar MD, FACS Karlos Godfrey MD [facility] 07/28/2020 07:25:0 0 AM EST - 07/28/2020 08:02:00 AM EST Corneal OpacityVitreous Disorders DegenerationDry Eye Syndrome Both Eyes FRAN (Karlos Tobar MD [facility]) Corneal Opacity Vitreous Disorders Degeneration Dry Eye Syndrome Both Eyes Outpatient Attender: Chanelle DEL REAL Main office - [facility] 06/28/2020 12:00:00 PM EST MEDENT ([facility]) Outpatient Attender: PUJA JULIAN MD Main office - [facility] 05/26/2020 06:30:00 AM EST MEDENT ([facility]) [place] [address] [address] 04/05/2020 12:00:00 AM EST eCW1 ([facility]) [place] [address] [address] 03/17/2020 12:00:00 AM EDT eCW1 ([facility]) Immunizations Vaccine Date Status Description Data Source(s) COVID-19 VACCINE Pfizer 08/15/2020 12:00:00 AM EDT completed [facility] Vaccine Series Complete: NOThis Data was [facility] influenza, recombinant, quadrIvalent,injectable, prese rvative free 04/05/2020 08:03:00 AM EST [facility] influenza, recombinant, quadrIvalent,injectable, prese rvative free 04/05/2020 08:03:00 AM EST completed [facility] Medications Medication Brand Name Start Date Product Form Dose Route Admi nistrative Instructions Pharmacy Instructions Status Indications Reaction Description Data Source(s) SUPREP BOWEL PREP KIT 17.5-3.13-1.6 gram SODIUM, POTASSIUM,M AG SULFATES 02/01/2021 12:00:00 AM EDT recon soln 354 TAKE PER DOCTORS BOWELPREP INSTRUCTIONS TAKE PER DOCTORS BOWELPREP INSTRUCTIONS SOLD: 02/13/2021 [facility] Bisacodyl 5 MG Delayed Release Oral Tablet [Dulcolax] Dulcol ax 01/31/2021 12:00:00 AM EDT ORAL active M EDENT ([facility], ) Suprep Bowel Prep Kit Suprep Bowel Prep Kit 01/31/2021 12:00:00 AM EDT active MEDENT ([facility], ) gabapentin 100 MG Oral Capsule Gabapentin 12/30/2020 12:00:00 AM EDT ORAL active MEDENT ([facility], ) No Active Medications 12/30/2020 12:00:00 AM EDT completed MEDENT ([facility], ) PT: Evaluate And Treat 06/30/2020 12:00:00 AM EST active MEDENT ([facility], ) Cyclobenzaprine hydrochloride 5 MG Oral Tablet Cyclobenzapri ne HCL 06/28/2020 12:00:00 AM EST ORAL active M EDENT ([facility], ) Cyclobenzaprine hydrochloride 5 MG Oral Tablet CYCLOBENZAPRI NE HCL 06/28/2020 12:00:00 AM EST tablet 60 TAKE ONE TABLET BY MOUTH TWICE A DAY MAXIMUM DAILY DOSE = 2 TABLETS TAKE ONE TABLET BY MOUTH TWICE A DAY MAX IMUM DAILY DOSE = 2 TABLETS SOLD: 07/04/2020 [facility] Insurance Providers Payer name Policy type / Coverage type Policy ID Covered alliance party ID Covered alliance party's relationship to ferreira Policy Ferreira Plan Information [facility] [id number] SP [id number] [facility] [id number] SP [id number] [facility] [id number] 0000 [id number] ANSI-Commercial [id number] ANSI-Commercial [id number] ANSI-Commercial [id number] ANSI-Commercial [id number] ANSI-Commercial [id number] ANSI-Commercial [id number] [facility] Commercial [id number] Self [id number] [facility] At [facility] Health Maintenance Organization ([facility]) 00 [id number] Family Dependent [id number] [facility] Health Maintenance [facility] ([facility]) 00 [id number] Self [id number] [facility] AT [facility] [id number] 18 [id number] [facility] [id number] SP [id number] SELF PAY ONLY [id number] SP [id number] Problems, Conditions, and Diagnoses Code Display Name Description Problem Type Effective Dates Data Source(s) D22.71 [id number] Melanocytic nevi of right lower limb, inc luding hip Problem 03/17/2020 12:00:00 AM EDT [facility] D18.01 [id number] Escobar angioma Problem 03/17/2020 12:00:00 A M EDT [facility]CW[facility]) Surgeries/Procedures Procedure Description Date Indications Data Source(s) OFFICE OUTPATIENT VISIT 25 MINUTES 12/30/2020 12:00:00 AM EDT MEDENT ([facility], ) OFFICE OUTPATIENT VISIT 25 MINUTES 09/28/2020 12:00:00 AM EDT MEDENT ([facility], ) Intermediate Eye Exam Established Patient Intermediate Eye Exam Established Patient 07/28/2020 12:00:00 AM EST FRAN (Jerel Tobar MD [facility]) Needle electromyography, each extremity, with related paraspinal areas, when performed, done with nerve conduction, amplitude and latency/velocity study; complete, five or more muscles studied, innervated by three or more nerves or four or more spinal levels (list separately in addition to the code for primary procedure). 06/13/2020 12:00:00 AM EST MEDEN T ([facility], ) Needle electromyography, each extremity, with related paraspinal areas, when performed, done with nerve conduction, amplitude and latency/velocity study; complete, five or more muscles studied, innervated by three or more nerves or four or more spinal levels (list separately in addition to the code for primary procedure). 06/13/2020 12:00:00 AM EST MEDEN T ([facility], ) Needle Electromyography Non Extremity Done With Nerve Conduc tion 06/13/2020 12:00:00 AM EST MEDENT ([facility] ) [address] Nerve conduction studies 7-8 studies NEW 201206/13/2020 12:00:00 AM EST MEDENT ([facility], ) Blink Reflexes 06/13/2020 12:00:00 AM EST MEDENT ([facility], ) Nerve Conduction 9-10 Studies 06/13/2020 12:00:[address] MEDENT ([facility], ) MRI BRAIN BRAIN STEM W/O CONTRAST MATERIAL 06/07/2020 12:00:00 AM EST MEDENT ([facility] ) MRI BRAIN BRAIN STEM W/O CONTRAST MATERIAL 06/07/2020 12:00:00 AM EST MEDENT ([facility] ) MRI SPINAL CANAL CERVICAL W/O CONTRAST MATRL 12:00:00 AM EST MEDENT ([facility] ) MRI SPINAL CANAL CERVICAL W/O CONTRAST MATRL 12:00:00 AM EST MEDENT ([facility], ) Immunization: Flublok Quadrivalent (18 years & older) 0.5mL IM (Influenza) 04/05/2020 12:00:00 AM EST eCW1 ([facility]) Results ID Date Data Source [id number] 11/21/2020 12:00:00 AM EDT [facility] Name Value Range Interpretation Code Description Data Camelia rce(s) Supporting Document(s) SARS-CoV2 Rapid Antigen Negative [facility] This lab was reported by Ramses Khoury. ID Date Data Source [id number] 05/03/2020 12:00:00 AM EST [facility] Name Value Range Interpretation Code Description Data Camelia rce(s) Supporting Document(s) 2019-nCoV RNA XXX GERSON+probe-Imp [facility] This lab was ordered by [facility] and reported by [employer]. Procedure Social History Code Duration Value Status Description Data Source(s ) Smoking 07/28/2020 08:02:56 AM EST Ex-smoker (finding) [facility] ed Ex-smoker (finding) DELL RAPIDS (Karlos Tobar MD [facility]) Smoking 04/05/2020 12:00:00 AM EST Former Smoker completed Former Smoker [facility] Smoking 04/05/2020 12:00:00 AM EST Former Smoker completed Former Smoker eCW1 [facility]) Vital Signs ID Date Data Source UNK Name Value Range Interpretation Code Description Data Source(s) [facility]stolic blood pressure 128 mm[Hg] 128 mm[Hg] [facility] Diastolic blood pressure 90 mm[Hg] 90 mm[Hg] [facility] Body height 62.75 [in_i] 62.75 [in_i] [facility] ([facility]) 5'2.75" Body weight 149.00 [lb_av] 149.00 [lb_av] MEDEN T ([facility]) Body mass index (BMI) [Ratio] 26.6 kg/m2 26.6 k g/m2 [facility] ([facility]) [place] body weight 110 [lb_av] 110 [lb_av] MEDEN T ([facility]) Body weight 67.586 kg 67.586 kg MEDENT ([facility], ) Body surface area Derived from formula 1.70 m2 1.70 m2 MEDENT ([facility]) Systolic blood pressure 140 mm[Hg] 140 mm[Hg] M EDENT ([facility] ) Diastolic blood pressure 90 mm[Hg] 90 mm[Hg] MEDENT ([facility]) Heart rate 80 /min 80 /min MEDENT ([facility], ) Respiratory rate 16 /min 16 /min MEDENT ( [facility]) Body weight 151 [lb_av] 151 [lb_av] eCW1 ([facility]) Body height 63.75 [in_i] 63.75 [in_i] eCW1 ([facility]) Body mass index (BMI) [Ratio] 26.12 kg/m2 26.12 kg/m2 eCW1 [facility] Heart rate 66 /min 66 /min eCW1 ([facility]) Respiratory rate 18 /min 18 /min eCW1 ([facility]) Body temperature 97.8 [degF] 97.8 [degF] [facility] Systolic blood pressure 131 mm[Hg] 131 mm[Hg] e CW1 ([facility]) Diastolic blood pressure 88 mm[Hg] 88 mm[Hg] eCW1 [facility] Body weight 150.6 [lb_av] 150.6 [lb_av] eCW1 ([facility]) Body height 63.75 [in_i] 63.75 [in_i] eCW1 ([facility]) Body mass index (BMI) [Ratio] 26.05 kg/m2 26.05 kg/m2 eCW1 [facility]) Systolic blood pressure 118 mm[Hg] 118 mm[Hg] e CW1 ([facility]) Diastolic blood pressure 72 mm[Hg] 72 mm[Hg] eCW1 [facility]
[2021-03-14] MEDS ORDERED: propofoL 200 MG/20 ML VIAL As Ordered ONE (09:32)
[2021-03-14] MEDS ORDERED: LIDOCAINE 2% 100MG/5ML SDV (FOR ANES.) As Ordered ONE (09:32)
--- NOTE | 2021-03-14 11:30 | ROOR ---
Patient Name: Luisa Zaidi Procedure Date: 03/14/2021 11:04 AM Date of : 1970 Age: 50 Room: [facility] Gender: Female Note Status: Finalized Procedure: Colonoscopy Indications: Screening for colorectal malignant neoplasm Providers: Reagan Devries MD Referring MD: Bianka JACOBS DO Requestmarianela Provider: Medicines: Monitored Anesthesia Care Complications: No immediate complications. Procedure: Pre-Anesthesia Assessment: - Prior to the procedure, a History and Physical was performed, and patient medications and allergies were reviewed. The patient is competent. The risks and benefits of the procedure and the sedation options and risks were discussed with the patient. All questions were answered and informed consent was obtained. Patient identification and proposed procedure were verified by the physician, the nurse and the anesthesiologist in the procedure room. Mental Status Examination: alert and oriented. Airway Examination: normal oropharyngeal airway and neck mobility. Respiratory Examination: clear to auscultation. CV Examination: normal. Prophylactic Antibiotics: The patient does not require prophylactic antibiotics. Prior Anticoagulants: The patient has taken no previous anticoagulant or antiplatelet agents. ASA Grade Assessment: II - A patient with mild systemic disease. After reviewing the risks and benefits, the patient was deemed in satisfactory condition to undergo the procedure. The anesthesia plan was to use monitored anesthesia care (MAC). Immediately prior to administration of medications, the patient was re-assessed for adequacy to receive sedatives. The heart rate, respiratory rate, oxygen saturations, blood pressure, adequacy of pulmonary ventilation, and response to care were monitored throughout the procedure. The physical status of the patient was re-assessed after the procedure. The Colonoscope was introduced through the anus and advanced to the terminal ileum, with identification of the appendiceal orifice and IC valve. The colonoscopy was performed without difficulty. The patient tolerated the procedure well. The quality of the bowel preparation was good. The terminal ileum, ileocecal valve, appendiceal orifice, and rectum were photographed. Scope insertion time was 2 minutes. Scope withdrawal time was 9 minutes. The total duration of the procedure was 12 minutes. Findings: The perianal and digital rectal examinations were normal. The terminal ileum appeared normal. A 5 mm polyp was found in the sigmoid colon. The polyp was sessile. The polyp was removed with a cold snare. Resection and retrieval were complete. Verification of patient identification for the specimen was done by the physician and nurse using the patient's name, date and medical record number. Estimated blood loss was minimal. Multiple small and large-mouthed diverticula were found from sigmoid to descending colon. There was no evidence of diverticular bleeding. Non-bleeding external and internal hemorrhoids were found during retroflexion. The hemorrhoids were small. Impression: - The examined portion of the ileum was normal. - One 5 mm polyp in the sigmoid colon, removed with a cold snare. Resected and retrieved. - Moderate diverticulosis from sigmoid to descending colon. There was no evidence of diverticular bleeding. - Non-bleeding external and internal hemorrhoids. Recommendation: - Patient has a contact number available for emergencies. The signs and symptoms of potential delayed complications were discussed with the patient. Return to normal activities tomorrow. Written discharge instructions were provided to the patient. - High fiber diet. - Continue present medications. - Use fiber, for example Citrucel, Fibercon, Konsyl or Metamucil. - Await pathology results. - Repeat colonoscopy in 5-10 years for surveillance based on pathology results. - Telephone GI clinic for pathology results in 2 weeks. - Return to primary care physician. Procedure Code(s): --- Professional --- 56722, Colonoscopy, flexible; with removal of tumor(s), polyp(s), or other lesion(s) by snare technique Diagnosis Code(s): --- Professional --- Z12.11, Encounter for screening for malignant neoplasm of colon K64.8, Other hemorrhoids K63.5, Polyp of colon K57.30, Diverticulosis of large intestine without perforation or abscess without bleeding CPT copyright 2019 [employer]. All rights reserved. The codes documented in this report are preliminary and upon middle school combination teacher review may be revised to meet current compliance requirements. Reagan Devries MD Reagan Devries MD 03/14/2021 11:29:42 AM Electronically signed by Reagan Devries MD Number of Addenda: 0 Note Initiated On: 03/14/2021 11:04 AM Estimated Blood Loss: Estimated blood loss was minimal.
[2021-03-14 12:08] VITALS: BP 136/88
== END 2021-03-14 12:09 | disposition home or self-care (01) ==
LOC: M OPP 09:21
PROVIDERS: ATTEND Internal Medicine Gastroenterology
DX: Z12.11 Encounter for screening for malignant neoplasm of colon (principal); K63.5 Polyp of colon; K57.30 Diverticulosis of large intestine without perforation or abscess without bleeding; K64.8 Other hemorrhoids; Z79.899 Other long term (current) drug therapy

== ENCOUNTER → 2021-04-10 | Outpatient (REF) | payer OTHER ==
[~2021-04-10] MED LIST changes: -NS 1,000 ML IV ONE
[2021-04-10 11:55] LABS: HEMATOCRIT 45.2 % (36.0-47.0); HEMOGLOBIN 14.7 g/dl (12.0-15.5); MEAN CORPUSCULAR HEMOGLOBIN 30.9 pg (27.0-33.0); MEAN CORPUSCULAR HGB CONC 32.5 g/dl (32.0-36.5); MEAN CORPUSCULAR VOLUME 95.2 fl (80.0-96.0); PLATELET COUNT, AUTOMATED 250 10^3/uL (150-450); RED BLOOD COUNT 4.75 10^6/uL (4.00-5.40); WHITE BLOOD COUNT 5.4 10^3/uL (4.0-10.0)
[2021-04-10 12:35] LABS: ALT/SGPT 23 U/L (12-78); BILIRUBIN,TOTAL 0.9 MG/DL (0.2-1.0); BLOOD UREA NITROGEN 12 MG/DL (7-18); CALCIUM LEVEL 9.5 MG/DL (8.5-10.1); CARBON DIOXIDE LEVEL 28 MEQ/L (21-32); CHLORIDE LEVEL 106 MEQ/L (98-107); CHOLESTEROL LEVEL 282 MG/DL (<200); CREATININE FOR GFR 0.85 MG/DL (0.55-1.30); FREE T4 0.96 NG/DL (0.76-1.46); GLOMERULAR FILTRATION RATE > 60.0 (>51); GLUCOSE, FASTING 96 MG/DL (70-100); HDL CHOLESTEROL 60 MG/DL (>40); LDL CHOLESTEROL 187 MG/DL (<100); NON-HDL-C 222 MG/DL; POTASSIUM SERUM 4.4 MEQ/L (3.5-5.1); SODIUM LEVEL 140 MEQ/L (136-145); TOTAL PROTEIN 7.3 GM/DL (6.4-8.2); TRIGLYCERIDES LEVEL 176 MG/DL (<150)
== END ==
LOC: M SFHCCLAY 07:57
PROVIDERS: ATTEND Family Medicine
DX: Z00.00 Encounter for general adult medical examination without abnormal findings (principal); Z13.220 Encounter for screening for lipoid disorders; Z82.49 Family history of ischemic heart disease and other diseases of the circulatory system; Z13.1 Encounter for screening for diabetes mellitus; R68.89 Other general symptoms and signs; Z83.49 Family history of other endocrine, nutritional and metabolic diseases; Z23 Encounter for immunization; R20.2 Paresthesia of skin; J30.9 Allergic rhinitis, unspecified; H90.3 Sensorineural hearing loss, bilateral
CPT/HCPCS: 80053; 80061; 84439; 84443; 85027; 90471; 90682; G0463

== ENCOUNTER → 2021-05-29 | Outpatient (REF) | payer OTHER | LOC: M SFHCCLAY 08:56 | PROVIDERS: ATTEND Nurse Practitioner Family | DX: Z12.4 Encounter for screening for malignant neoplasm of cervix (principal) | CPT/HCPCS: G0123; G0463 ==

== ENCOUNTER → 2021-09-25 | Outpatient (REF) | payer OTHER ==
[~2021-09-25] MED LIST changes: +OLOP5DRO11 OU; -[UNRECOGNIZED DRUG - CODE] OU
[2021-09-25 12:08] LABS: CHOLESTEROL RISK RATIO 4.298 (<5)
== END ==
LOC: M SFHCCLAY 07:55
PROVIDERS: ATTEND Family Medicine
DX: E78.5 Hyperlipidemia, unspecified (principal)
CPT/HCPCS: 80061; G0463

== ENCOUNTER → 2021-10-31 | Outpatient (CLI) | payer OTHER ==
[~2021-10-31] MED LIST changes: +CARA1TAB6 PO
== END ==
LOC: M CLY 08:45
PROVIDERS: ATTEND Physician Assistant
DX: M25.561 Pain in right knee (principal); M17.11 Unilateral primary osteoarthritis, right knee; M23.8X1 Other internal derangements of right knee
CPT/HCPCS: 73564; G0463

== ENCOUNTER 2021-11-10 11:20 | Emergency (ER) | payer OTHER ==
[~2021-11-10] VITALS: Ht 157.5 cm; Wt 68.9 kg
[~2021-11-10 11:20] MED LIST changes: -CARA1TAB6 PO
[2021-11-10] MEDS ORDERED: ISOVUE-370 76% 100ML VIAL As Ordered ONE (13:43)
[2021-11-10 13:46] LABS: BASO % 0.3 % (0.0-1.0); EOS % 0.5 % (0.0-3.0); HEMATOCRIT 47.4 % (36.0-47.0); HEMOGLOBIN 15.7 g/dl (12.0-15.5); LYMPH # 0.8 10^3/uL (1.5-5.0); LYMPH % 12.8 % (24.0-44.0); MEAN CORPUSCULAR HEMOGLOBIN 30.5 pg (27.0-33.0); MEAN CORPUSCULAR HGB CONC 33.1 g/dl (32.0-36.5); MONO # 0.4 10^3/uL (0.0-0.8); MONO % 6.9 % (2.0-8.0); NEUTROPHILS # 4.9 10^3/uL (1.5-8.5); NEUTROPHILS % 79.3 % (36.0-66.0); PLATELET COUNT, AUTOMATED 247 10^3/uL (150-450); RED BLOOD COUNT 5.15 10^6/uL (4.00-5.40); WHITE BLOOD COUNT 6.2 10^3/uL (4.0-10.0)
[2021-11-10 14:14] LABS: BILIRUBIN,DIRECT 0.1 MG/DL (0.0-0.2); BILIRUBIN,TOTAL 0.7 MG/DL (0.2-1.0); TOTAL PROTEIN 7.6 GM/DL (6.4-8.2)
[2021-11-10] MEDS ORDERED: CARA1TAB6 PO ×2 (15:09→15:30)
[2021-11-10 15:30] VITALS: BP 146/86
== END 2021-11-10 15:32 | disposition home or self-care (01) ==
LOC: M ED 11:20
DX: K27.9 Peptic ulcer, site unspecified, unspecified as acute or chronic, without hemorrhage or perforation (principal); K21.9 Gastro-esophageal reflux disease without esophagitis; K44.9 Diaphragmatic hernia without obstruction or gangrene; K57.30 Diverticulosis of large intestine without perforation or abscess without bleeding; I88.0 Nonspecific mesenteric lymphadenitis; Z79.899 Other long term (current) drug therapy
CPT/HCPCS: 74177; 80047; 80076; 83690; 85025; 99284; Q9967

== ENCOUNTER → 2021-11-15 | Outpatient (CLI) | payer OTHER ==
[~2021-11-15] MED LIST changes: +CARA1TAB6 PO
== END ==
LOC: M RAD 07:33
PROVIDERS: ATTEND Physician Assistant
DX: M23.8X1 Other internal derangements of right knee (principal); M25.461 Effusion, right knee; S83.241A Other tear of medial meniscus, current injury, right knee, initial encounter; X58.XXXA Exposure to other specified factors, initial encounter; Y92.9 Unspecified place or not applicable; Y93.9 Activity, unspecified; Y99.9 Unspecified external cause status

== ENCOUNTER → 2021-11-15 | Outpatient (CLI) | payer OTHER | LOC: M SOG 10:11 | PROVIDERS: ATTEND Orthopaedic Surgery Adult Reconstructive Orthopaedic Surgery | DX: M25.561 Pain in right knee (principal) ==

== ENCOUNTER → 2022-01-11 | Outpatient (CLI) | payer OTHER ==
[~2022-01-11] MED LIST changes: +IBUP-1022 PO
== END ==
LOC: M LABSMTC 09:49
PROVIDERS: ATTEND Anesthesiology
DX: Z01.812 Encounter for preprocedural laboratory examination (principal); Z11.52 Encounter for screening for COVID-19

== ENCOUNTER 2022-01-16 08:59 | Day surgery (SDC) | payer OTHER ==
[~2022-01-16] VITALS: Ht 157.5 cm; Wt 67.0 kg
[~2022-01-16 08:59] MED LIST changes: +ACETAMINOPHEN 500 MG TAB PO ONE; +CelecoXIB 400 MG CAP PO ONE; +GABAPENTIN 300 MG CAP PO ONE; +ONDANSETRON 4MG 2ML VIAL IV ONE
[2022-01-16] MEDS ORDERED: LR 1,000 ML IV SCH ×2 (09:20→11:55)
[2022-01-16] MEDS ORDERED: BUPIVACAINE/EPIN 0.5% 30 ML VIAL As Ordered ONE (10:30)
[2022-01-16] MEDS ORDERED: EPINEPHrine 1MG/ML INJ 30ML MD-VIAL As Ordered ONE (10:30)
[2022-01-16] MEDS ORDERED: MIDAZOLAM INJ 2MG/2ML VIAL (J2250 PER 1MG) As Ordered ONE (10:55)
[2022-01-16] MEDS ORDERED: fentaNYL 100 MCG/2 ML INJECTION As Ordered ONE (10:55)
[2022-01-16] MEDS ORDERED: ONDANSETRON 4MG 2ML VIAL As Ordered ONE (10:55)
[2022-01-16] MEDS ORDERED: LIDOCAINE 2% 100MG/5ML SDV (FOR ANES.) As Ordered ONE (10:55)
[2022-01-16] MEDS ORDERED: dexameTHASONE 4 MG/ML 1ML VIAL (J1100 PER 1MG) As Ordered ONE (10:55)
[2022-01-16] MEDS ORDERED: propofoL 200 MG/20 ML VIAL As Ordered ONE (10:55)
[2022-01-16] MEDS ORDERED: METOCLOPRAMIDE INJ 10MG/2ML VIAL (J2765 PER 1) As Ordered ONE (10:55)
[2022-01-16] MEDS ORDERED: fentaNYL 100 MCG/2 ML INJECTION IV PRN (11:55)
[2022-01-16] MEDS ORDERED: ONDANSETRON 4MG 2ML VIAL IV PRN (11:55)
[2022-01-16] MEDS ORDERED: METOCLOPRAMIDE INJ 10MG/2ML VIAL (J2765 PER 1) IV PRN (11:55)
[2022-01-16] MEDS ORDERED: oxyCODONE 5MG TAB PO PRN (11:55)
[2022-01-16 13:00] VITALS: BP 138/84
== END 2022-01-16 13:24 | disposition home or self-care (01) ==
LOC: M SDC 08:59
PROVIDERS: ATTEND Orthopaedic Surgery Adult Reconstructive Orthopaedic Surgery
DX: S83.241A Other tear of medial meniscus, current injury, right knee, initial encounter (principal); M22.41 Chondromalacia patellae, right knee; M25.40 Effusion, unspecified joint; R51.9 Headache, unspecified; Z91.011 Allergy to milk products; K90.41 Non-celiac gluten sensitivity; Z87.891 Personal history of nicotine dependence; Z79.899 Other long term (current) drug therapy
CPT/HCPCS: 29880; 93005; J0171; J1100; J2250; J2405; J2765; J3010

== ENCOUNTER → 2022-05-10 | Outpatient (CLI) | payer OTHER ==
[~2022-05-10] MED LIST changes: -ACETAMINOPHEN 500 MG TAB PO ONE; -CelecoXIB 400 MG CAP PO ONE; -GABAPENTIN 300 MG CAP PO ONE; -ONDANSETRON 4MG 2ML VIAL IV ONE
== END ==
LOC: M WHC 15:16
PROVIDERS: ATTEND Nurse Practitioner Family
DX: Z12.31 Encounter for screening mammogram for malignant neoplasm of breast (principal)

== ENCOUNTER → 2022-10-15 | Outpatient (REF) | payer OTHER ==
[2022-10-15 12:04] LABS: BLOOD UREA NITROGEN 14 MG/DL (9-23); CALCIUM LEVEL 9.4 MG/DL (8.5-10.1); CARBON DIOXIDE LEVEL 29 MMOL/L (20-31); CHLORIDE LEVEL 104 MMOL/L (98-107); CHOLESTEROL LEVEL 224 MG/DL (<200); CHOLESTEROL RISK RATIO 3.98 (<5); CREATININE FOR GFR 0.83 MG/DL (0.55-1.30); GLOMERULAR FILTRATION RATE > 60.0 (>51); GLUCOSE, FASTING 90 MG/DL (60-100); HDL CHOLESTEROL 56.2 MG/DL (>40); NON-HDL-C 167.8 MG/DL; POTASSIUM SERUM 4.1 MMOL/L (3.5-5.1); SODIUM LEVEL 140 MMOL/L (136-145); TRIGLYCERIDES LEVEL 139 MG/DL (<150)
== END ==
LOC: M SFHCCLAY 07:39
PROVIDERS: ATTEND Nurse Practitioner Family
DX: E78.5 Hyperlipidemia, unspecified (principal); R03.0 Elevated blood-pressure reading, without diagnosis of hypertension

== ENCOUNTER → 2025-02-04 | Outpatient (CLI) | payer OTHER ==
[~2025-02-04] MED LIST changes: -IBUP-1022 PO; +IBUP600T42 PO
== END ==
LOC: M WHC 08:31
PROVIDERS: ATTEND Internal Medicine
DX: N63.0 Unspecified lump in unspecified breast (principal)
CPT/HCPCS: 77066; G0279